=== PATIENT | female | born 1975 | race Hispanic/Latino ===

== ENCOUNTER → 2021-09-25 | Outpatient (REF) | LOC: M LAB 13:42 | PROVIDERS: ATTEND Nurse Practitioner Adult Health | DX: Z02.1 Encounter for pre-employment examination (principal) ==

== ENCOUNTER → 2021-09-29 | Outpatient (REF) | LOC: M LAB 13:14 | PROVIDERS: ATTEND Nurse Practitioner Adult Health | DX: Z02.9 Encounter for administrative examinations, unspecified (principal) ==

== ENCOUNTER 2021-10-28 07:20 | Emergency (ER) | payer SELFPAY ==
[~2021-10-28] VITALS: Ht 175.3 cm; Wt 97.7 kg
[2021-10-28] MEDS ORDERED: ACETAMINOPHEN 325 MG TAB PO ONE (08:00)
--- NOTE | 2021-10-28 08:50 | REP ---
INDICATION: fell hit back of head, tender crown of head COMPARISON: None. TECHNIQUE: Axial noncontrast images from the skull base to the vertex with coronal reformations. This CT examination was performed using the following dose reduction techniques: Automated exposure control, adjustment of mA and/or kv according to the patient's size, and use of iterative reconstruction technique. FINDINGS: The ventricles, sulci, and cisterns are normal in position and appearance. Jordan-white differentiation is maintained. No acute intracranial hemorrhage, mass/mass effect, pathology or trauma/injury. No evidence for acute infarction. No extra-axial fluid collection. Calvarium is intact. Paranasal sinuses and mastoid air cells are clear. IMPRESSION: Normal noncontrast head CT. No evidence for acute intracranial pathology or trauma/injury. <Electronically signed by Anjum Ross > 10/28/21 0813
--- NOTE | 2021-10-28 08:52 | REP ---
INDICATION: fell hit back of head, tender crown of head COMPARISON: None. TECHNIQUE: Axial noncontrast images from the skull base to the thoracic inlet with coronal and sagittal re-formations This CT examination was performed using the following dose reduction techniques: Automated exposure control, adjustment of mA and/or kv according to the patient's size, and use of iterative reconstruction technique. FINDINGS: Straightening of normal lordosis is likely nonacute and may be secondary to positioning. Moderate to early advanced multilevel degenerative spondylosis noted. Chronic canal stenosis primarily noted at C6-7 with posterior osteophytes narrow the canal to 7.5 mm AP diameter. No evidence for acute fracture/compression injury or subluxation. Posterior elements and spinous processes are intact. Paravertebral soft tissues are normal. IMPRESSION: Multilevel degenerative spondylosis. No evidence for acute pathology or trauma/injury. <Electronically signed by Anjum Ross > 10/28/21 0890
[2021-10-28 09:40] VITALS: BP 120/61
== END 2021-10-28 09:41 | disposition home or self-care (01) ==
LOC: M ED 07:20
DX: S09.90XA Unspecified injury of head, initial encounter (principal); W00.0XXA Fall on same level due to ice and snow, initial encounter; Y92.481 Parking lot as the place of occurrence of the external cause; Y93.9 Activity, unspecified; Y99.9 Unspecified external cause status; M47.812 Spondylosis without myelopathy or radiculopathy, cervical region; M25.78 Osteophyte, vertebrae; Z88.0 Allergy status to penicillin; Z88.2 Allergy status to sulfonamides; Z88.8 Allergy status to other drugs, medicaments and biological substances

== ENCOUNTER → 2021-12-06 | Outpatient (REF) | LOC: M EMP 08:03 | PROVIDERS: ATTEND Family Medicine | DX: Z11.52 Encounter for screening for COVID-19 (principal) ==

== ENCOUNTER → 2021-12-27 | Outpatient (REF) | LOC: M LABSMTC 10:34 | PROVIDERS: ATTEND Family Medicine | DX: Z20.822 Contact with and (suspected) exposure to COVID-19 (principal) ==

== ENCOUNTER → 2022-01-01 | Outpatient (REF) | LOC: M LABSMTC 10:12 | PROVIDERS: ATTEND Family Medicine | DX: Z20.822 Contact with and (suspected) exposure to COVID-19 (principal) ==